=== PATIENT | male | born 2000 | race Caucasian/White ===

== ENCOUNTER 2022-01-18 08:22 | Day surgery (SDC) | payer OTHER ==
[~2022-01-18] VITALS: Ht 180.3 cm; Wt 104.3 kg
[2022-01-18] MEDS ORDERED: ceFAZolin SOD 2 GM in IV 1 EA IV ONE (09:05)
[2022-01-18] MEDS ORDERED: LR 1,000 ML IV SCH ×2 (09:25→12:45)
[2022-01-18] MEDS ORDERED: MIDAZOLAM INJ 2MG/2ML VIAL (J2250 PER 1MG) As Ordered ONE (09:48)
[2022-01-18] MEDS ORDERED: fentaNYL 100 MCG/2 ML INJECTION As Ordered ONE (09:48)
[2022-01-18] MEDS ORDERED: LIDOCAINE 2% INJ 100 MG/5 ML SYRINGE As Ordered ONE (09:49)
[2022-01-18] MEDS ORDERED: BUPIVACAINE HCL 0.5% 30ML VIAL As Ordered ONE (11:06)
[2022-01-18] MEDS ORDERED: LIDOCAINE 1% MDV 20ML VIAL As Ordered ONE (11:06)
[2022-01-18] MEDS ORDERED: ONDANSETRON 4MG 2ML VIAL IV PRN (12:45)
[2022-01-18] MEDS ORDERED: METOCLOPRAMIDE INJ 10MG/2ML VIAL (J2765 PER 1) IV PRN (12:45)
[2022-01-18] MEDS: oxyCODONE 5MG TAB PO PRN ×2 (13:10→13:49)
[2022-01-18 14:40] VITALS: BP 137/74
== END 2022-01-18 14:30 | disposition home or self-care (01) ==
LOC: M SDC 08:22
PROVIDERS: ATTEND Podiatrist Foot & Ankle Surgery
DX: M21.612 Bunion of left foot (principal); M20.12 Hallux valgus (acquired), left foot
CPT/HCPCS: 28297; 28306; 76000; 88300; 97116; 97161; C1713; J0690; J2250; J3010

== ENCOUNTER 2022-01-29 22:19 | Emergency (ER) | payer OTHER ==
[~2022-01-29] VITALS: Ht 180.3 cm; Wt 103.6 kg
[2022-01-29 22:19] VITALS: BP 141/95
[2022-01-29] MEDS ORDERED: OXYC1TAB23 PO (22:28)
== END 2022-01-30 01:57 | disposition left against medical advice (07) ==
LOC: M ED 22:19
DX: Z53.21 Procedure and treatment not carried out due to patient leaving prior to being seen by health care provider (principal)